=== PATIENT | male | born 1950 | race Caucasian/White ===

== ENCOUNTER 2017-11-14 08:17 | Day surgery (SDC) | payer MEDICARE, BC ==
[2017-11-14] MEDS ORDERED: LIDOCAINE 2% MDV (20MG/ML) 20ML VIAL IV ONE (08:18)
[2017-11-14] MEDS ORDERED: PROPOFOL 10 MG/ML VIAL IV ONE (08:18)
[2017-11-14] MEDS ORDERED: DEXAMETHASONE PRESERVATIVE FREE 10MG/ML VIAL IV ONE (08:18)
[2017-11-14] MEDS ORDERED: FENTANYL PF 100MCG/2ML VIAL IV ONE (08:18)
[2017-11-14] MEDS ORDERED: LIDOCAINE 1% W/EPI 1:200,000 MPF 30ML SQ ONE (08:18)
[2017-11-14] MEDS ORDERED: MIDAZOLAM HCL 2MG/2ML VIAL IV ONE (08:18)
[2017-11-14] MEDS ORDERED: BUPIVACAINE 0.75% W/EPI MPF 30ML VIAL IVP ONE (08:18)
--- NOTE | 2017-11-14 15:32 | Operative Note - [place] ---
DATE OF SURGERY: 11/14/17 PREOPERATIVE DIAGNOSIS: CERVICAL SPONDYLOSIS WITHOUT MYELOPATHY, ICD-10 CODE = M47.812. OPERATION: RADIOFREQUENCY RHIZOTOMY BILATERAL CERVICAL FACETS, 4-5 AND 5- 6. SURGEON: YI HERR D.O. ANESTHESIA: LOCAL SEDATION. ANESTHESIA PROVIDER: KYLE CHRIS CRNA INDICATION: This patient presents with primary neck pain. Examination shows diffuse tenderness in the cervical spine. Range of motion does cause pain in the neck with extension. Diagnostic studies show multiple levels of spondylosis with diffuse disc abnormalities. A previous facet rhizotomy series has resulted in up to 75-plus percent pain control. Due to the failure of all therapies and the success of the facet series, the patient presents today for rhizotomy for more long-term relief. PROCEDURE: Intravenous line, vital sign monitoring, IV sedation by Anesthesia. Patient position prone. Sterile prep. Sterile technique. Under imaging, facet levels at 4-5 and 5-6 were identified and marked bilaterally. Skin infiltrated and a 20-gauge rhizotomy cannula positioned. Stimulation trials conducted resulting in appropriate pattern of stimulation. Rhizotomy burn performed. Local with anti-inflammatory into the sites. Topical antibiotics. Sterile dressing applied. We will monitor and evaluate. cc: Dr. Kedar Magallanes JOB NUMBER: [id number] MTDD
== END 2017-11-14 10:40 | disposition home or self-care (01) ==
LOC: SUR 08:17
PROVIDERS: ATTEND Pain Medicine Interventional Pain Medicine
DX: M47.816 Spondylosis without myelopathy or radiculopathy, lumbar region (principal); I10 Essential (primary) hypertension; Z87.891 Personal history of nicotine dependence
CPT/HCPCS: 64633; 01936; J1100; J3010; J3490